=== PATIENT | female | born 1965 | race Hispanic/Latino ===

== ENCOUNTER 2019-11-30 10:46 | Day surgery (SDC) | payer BC ==
[~2019-11-30] VITALS: Ht 171.4 cm; Wt 73.8 kg
[~2019-11-30 10:46] MED LIST: LOPE2 PO
--- NOTE | 2019-11-30 11:10 | NUR ---
PATIENT ARRIVED TO DAY PATIENT ACCOMPANIED BY DAUGHTER. PATIENT AAOX3, RESPIRATIONS UNLABORED, VITAL SIGNS STABLE, DENIES ANY PAIN AT THIS TIME. PATIENT WITH PICC LINE TO RIGHT UPPER ARM.
[2019-11-30 11:25] VITALS: BP 91/72
[2019-11-30] MEDS ORDERED: DiphenhydrAMINE HCL 50 MG/ML VIAL ONE (11:37)
[2019-11-30] MEDS ORDERED: DEXAMETHASONE SOD PHOSPHATE 10MG/ML 1ML VIAL ONE (11:37)
[2019-11-30] MEDS ORDERED: SODIUM CHLORIDE 0.9% 1000ML 1,000 ML IV ONE (11:38)
[2019-11-30] MEDS ORDERED: DEXAMETHASONE SOD PHOSPHATE 10MG/ML 1ML VIAL IV SCH (11:45)
[2019-11-30] MEDS ORDERED: DiphenhydrAMINE HCL 50 MG/ML VIAL IVP SCH (11:45)
--- NOTE | 2019-11-30 12:30 | NUR ---
PATIENT RECEIVING TRANSFUSION OF SD PLATELETS VIA PICC LINE, PATIENT TOLERATING WELL. VITAL SIGNS STABLE, RESPIRATIONS UNLABORED.
--- NOTE | 2019-11-30 13:35 | NUR ---
PLATELET TRANSFUSION COMPLETED, PATIENT TOLERATED WELL. VITAL SIGNS STABLE, RESPIRATIONS UNLABORED, NO S/S OF TRANSFUSION REACTION. PICC LINE FLUSHED WITH 10CC OF NORMAL SALINE.
[2019-11-30 13:40] VITALS: BP 107/66
--- NOTE | 2019-11-30 13:45 | NUR ---
discharge instructions provided to patient and daughter, handouts provided and explained. all questions/concerns addressed.
[2020-02-16] MEDS ORDERED: TRAM50TA4 PO (23:34)
== END 2019-11-30 13:45 | disposition home or self-care (01) ==
LOC: DAH 10:46
PROVIDERS: ATTEND Internal Medicine Hematology & Oncology
DX: D69.6 Thrombocytopenia, unspecified (principal); F41.9 Anxiety disorder, unspecified; Z98.890 Other specified postprocedural states; Z79.899 Other long term (current) drug therapy; Z72.89 Other problems related to lifestyle; Z83.3 Family history of diabetes mellitus
CPT/HCPCS: 36415; 36430; 86900; 86901; A4216; J1100; J1200; J7030; P9034

== ENCOUNTER 2019-12-04 11:32 | Day surgery (SDC) | payer BC ==
[2019-12-04 12:35] VITALS: BP 113/67
--- NOTE | 2019-12-04 12:35 | NUR ---
pre procedure pt arrived ambulatory in no distress at this time. pt here for one unit of single donor platelets. pt made comfortable in bed, call light with in reach and bed in lowest position. Addendum: 12/04/19 at 1416 by JOLENE OSUNA RN RN pt has triple lumen picc line to rt upper arm with dressing dated 11/25/19 clean and dry.
[2019-12-04] MEDS ORDERED: SODIUM CHLORIDE 0.9% 1000ML 1,000 ML IV ONE (12:58)
[2019-12-04] MEDS ORDERED: DEXAMETHASONE SOD PHOSPHATE 10MG/ML 1ML VIAL ONE (12:59)
[2019-12-04] MEDS ORDERED: DiphenhydrAMINE HCL 50 MG/ML VIAL ONE (13:00)
[2019-12-04 14:46] VITALS: BP 103/66
[2019-12-30] MEDS ORDERED: RIVA20TA PO ×2 (05:31)
[2019-12-30] MEDS ORDERED: SENN8.6T32 PO ×2 (05:31)
== END 2019-12-04 15:42 | disposition home or self-care (01) ==
LOC: DAH 11:32
PROVIDERS: ATTEND Internal Medicine Hematology & Oncology
DX: D69.6 Thrombocytopenia, unspecified (principal)
CPT/HCPCS: 36415; 36430; 86900; 86901; A4216; A4222; A4223; A4606; A4663; J1100; J1200; J7030; P9034

== ENCOUNTER 2019-12-28 11:48 | Inpatient (IN) | payer BC ==
[~2019-12-28] VITALS: Ht 170.2 cm; Wt 73.0 kg
[2019-12-28 13:00] VITALS: BP 130/74
--- NOTE | 2019-12-28 13:30 | NUR ---
DIRECT ADMISSION PATIENT ARRIVED DIRECT ADMISSION FROM DR LEBLANC'S OFFICE. DX PANCYTOPENIA. LAB WORK FROM OFFICE FAXED OVER FROM [facility] OFFICE. PATIENT IS AAOX4. AMBULATORY. PICC LINE TO RIGHT UPPER ARM SALINE LOCKED. LEFT ARM RESTRICTION POST MASTECTOMY. PATIENT DENIES HAVING ANY PAIN AT THIS TIME.
[2019-12-28] MEDS ORDERED: DEXAMETHASONE 10MG/ML 1ML VIAL 20 MG in SODIUM CHLORIDE 0.9% 50 ML IV SCH (13:45)
[2019-12-28] MEDS ORDERED: DiphenhydrAMINE HCL 50 MG/ML VIAL IVP SCH (13:45)
[2019-12-28] MEDS: SODIUM CHLORIDE 0.9% 1000ML 1,000 ML IV SCH (13:45)
[2019-12-28] MEDS ORDERED: ACETAMINOPHEN 325 MG TAB PO PRN ×2 (14:00)
[2019-12-28] MEDS: TBO-FILGRASTIM 480 MCG/0.8 ML ML SQ SCH (14:00)
[2019-12-28] MEDS ORDERED: LEVOFLOXACIN 500 MG TABLET PO SCH (14:00)
[2019-12-28] MEDS ORDERED: ACETAMINOPHEN 325 MG TAB ONE (14:22)
[2019-12-28] MEDS ORDERED: VANCOMYCIN PROTOCOL PER PHARMACY IV SCH (14:45)
[2019-12-28] MEDS: ZOSYN 3.375GM+NS 50ML 50 ML IV SCH (15:25)
[2019-12-28 16:00] VITALS: BP 140/71
--- NOTE | 2019-12-28 16:36 | NUR ---
PLATELET TRANSFUSION VERIFIED 1 UNIT OF SDP WITH LEXI RN AND PATIENT AT BEDSIDE. PREMEDICATIONS OF DECADRON AND BENADRYL GIVEN PER MD ORDERS. CONSENT SIGNED AND IN CHART.
[2019-12-28] MEDS ORDERED: VANCOMYCIN 1GM+NS 250ML 250 ML IV SCH (16:45)
[2019-12-28 19:47] LABS: APPEARANCE,URINE Clear (CLEAR); BILIRUBIN,URINE Negative (NEGATIVE); COLOR,URINE Yellow (YELLOW); GLUCOSE, URINE (UA) Negative (NEGATIVE); KETONES,URINE Negative (NEGATIVE); LEUKOCYTE ESTERASE ,URINE Negative (NEGATIVE); NITRATE,URINE Negative (NEGATIVE); OCCULT BLOOD,URINE Negative (NEGATIVE); PH,URINE 7.5 (5.0-8.0); PROTEIN,URINE Negative (NEGATIVE); UROBILINOGEN,URINE 0.2 mg/dL (0.2-1.0)
[2019-12-28 20:04] VITALS: BP 98/62
[2019-12-29] VITALS (8 sets, daily range): BP systolic 95–128; BP diastolic 64–80
[2019-12-29] MEDS: ZOSYN 3.375GM+NS 50ML 50 ML IV SCH ×2 (02:49→13:39)
[2019-12-29 03:37] LABS: HEMATOCRIT 24.1 % (36-48); MEAN CORPUSCULAR HEMOGLOBIN 32.8 pg (27.0-33.0); MEAN CORPUSCULAR VOLUME 96.4 fL (79-99); PLATELET COUNT (AUTO) 42 K/uL (130-400)
[2019-12-29 03:38] LABS: WHITE BLOOD COUNT (AUTO) 0.2 K/uL (4.8-10.8)
[2019-12-29 03:40] LABS: CREATININE 0.6 mg/dL (0.5-1.5); POTASSIUM 4.3 mmol/L (3.5-5.1)
[2019-12-29 04:33] LABS: EOSINOPHILS % (MANUAL) 2 % (1-6); LYMPHOCYTES % (MANUAL) 88 % (22-44); MAN.DIFF COMMENT-IMPRESSION MANUAL DIFFERENTIAL; MONOCYTES % (MANUAL) 5 % (2-9); SEGMENTED NEUTROPHILS % 5 % (40-70)
[2019-12-29] MEDS: LEVOFLOXACIN 500 MG TABLET PO SCH (08:21)
[2019-12-29] MEDS: VANCOMYCIN 1GM+NS 250ML 250 ML IV SCH ×2 (08:21→21:57)
[2019-12-29] MEDS: TBO-FILGRASTIM 480 MCG/0.8 ML ML SQ SCH (08:22)
--- NOTE | 2019-12-29 15:00 | NUR ---
INITIAL SW spoke with patient. Patient lives with spouse, You Flores, [phone]. No home services or DME. Patient drives and is able to complete ADL's. 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 PCP is Dr. Augie Marshall. Pharmacy is [facility] located on [address]. DCP is home. Addendum: 12/29/19 at 1502 by SAJI BURR SS Amended: Links added.
--- NOTE | 2019-12-29 19:30 | NUR ---
PM Assessment Received pt awake, watching TV,with NS at 25cc/hr infusing well, routine assessment done, plan of care discuss, denies discomfort. As per report pt declined to have her PICC line dressing change which is due today as pt is scared that by using the hospital current type for PICC dressing will accidentally pull the sutures that secures the PICC. Explained to the pt the importance in maintaining the dressing to avoid possibility of infection, that I can place a non adherent dressing on top of the PICC line puncture site as to avoid it to get accidental pulling, pt agreed, PICC line re-dress aseptically as per protocol using a ChloraPrep which pt tolerated well. Puncture site noted no redness or any sign of infection with all ports patent.
[2019-12-29] MEDS: SODIUM CHLORIDE 0.9% 1000ML 1,000 ML IV SCH (22:12)
[2019-12-30] MEDS: ZOSYN 3.375GM+NS 50ML 50 ML IV SCH ×2 (02:58→15:12)
[2019-12-30 03:41] VITALS: BP 107/70
[2019-12-30 04:43] LABS: MEAN CORPUSCULAR HEMOGLOBIN 32.1 pg (27.0-33.0); MEAN CORPUSCULAR HGB CONC 33.8 g/dL (32.0-36.0); MEAN CORPUSCULAR VOLUME 94.9 fL (79-99); PLATELET COUNT (AUTO) 20 K/uL (130-400); RED BLOOD CELL COUNT(AUTO) 2.74 MIL/uL (4.00-5.50); RED CELL DISTRIBUTION WIDTH 19.1 % (11.0-15.5)
[2019-12-30 04:46] LABS: WHITE BLOOD COUNT (AUTO) 0.4 K/uL (4.8-10.8)
[2019-12-30 04:59] LABS: CREATININE 0.6 mg/dL (0.5-1.5); POTASSIUM 3.7 mmol/L (3.5-5.1)
[2019-12-30] MEDS ORDERED: RIVA20TA PO (05:31)
[2019-12-30] MEDS ORDERED: SENN8.6T32 PO (05:31)
[2019-12-30 07:30] VITALS: BP 104/68
--- NOTE | 2019-12-30 07:30 | NUR ---
ASSESSMENT ENCOUNTERED PT AMBULATING FROM BATHROOM TO BED,GAIT SLOW BUT STEADY WITH STAND BY ASSIST, PT DOES C/O RT CHEST AND FLANK PAIN 9/10 WITH DEEP BREATH, PT DOES NOT APPEAR TO BE IN ANY DISTRESS NOR ANY NEURO DEFICITS PRESENT. PT DENIES DIZZINESS, NAUSEA. DR LEBLANC UPDATED, ORDERS RECEIVED, PT IS ABLE TO TOLERATE FOOD, FLUIDS AND MEDICATION WITH NO THROAT CLEARING OR COUGH. CALL LIGHT WITHIN REACH.
[2019-12-30] MEDS: LEVOFLOXACIN 500 MG TABLET PO SCH (08:43)
[2019-12-30] MEDS: VANCOMYCIN 1GM+NS 250ML 250 ML IV SCH ×2 (08:43→22:26)
[2019-12-30] MEDS: TBO-FILGRASTIM 480 MCG/0.8 ML ML SQ SCH (08:44)
[2019-12-30] MEDS ORDERED: IBUP-2070 PO (08:46)
[2019-12-30] MEDS ORDERED: HYDROCODONE/ACETAMINOPHEN 5/325 MG TAB PO PRN (09:00)
--- NOTE | 2019-12-30 11:30 | NUR ---
NOTE ARRIVED FROM FOURTH FLOOR A TRANSFER. SHE CAME IN WITH PANCYTOPENIA. 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 SHE HAS RECEIVED 3 UNITS OF PRBC AND ONE UNIT OF PLATELETS AND SHE IS GOING TO RECEIVED ANOTHER UNIT SOON. SHE HAS ALOPECIA. SHE IS SOMEWHAT PALE. SHE HAS A PICC LINE WHIT. LEFT MASTECTOMY IN THE PAST. PINK BAND TO RIGHT WRIST. SHE HAS BEEN AFEBRILE. SHE WILL BE IN NEUTROPENIC PRECAUTIONS BECAUSE HER WBC COUNT IS 0.4 TODAY. HAS RECEIVED GRANIX. SHE HAD CXR DONE EARLIER FOR C/O RIGHT CHEST PAIN TO LATERAL ASPECT SPECIALLY WHEN SHE TAKES DEEP BREATH. REFER TO CHART FOR RESULTS. FROM MD DICTATIONS SHE HAS STAGE 4 CANCER AND THERE IS ABNORMALITIES REPORTED IN THE CXR REPORT.
[2019-12-30 12:00] VITALS: BP 113/73
[2019-12-30] MEDS: SODIUM CHLORIDE 0.9% 1000ML 1,000 ML IV SCH (13:45)
[2019-12-30] MEDS ORDERED: DEXAMETHASONE 10MG/ML 1ML VIAL 0 MG in SODIUM CHLORIDE 0.9% 50 ML IV SCH (14:00)
[2019-12-30] MEDS ORDERED: DiphenhydrAMINE HCL 50 MG/ML VIAL IV SCH (14:00)
[2019-12-30] MEDS ORDERED: DEXAMETHASONE SOD PHOSPHATE 4 MG/ML 1ML VIAL IVP SCH (15:00)
[2019-12-30] MEDS ORDERED: DEXAMETHASONE SOD PHOSPHATE 10MG/ML 1ML VIAL ONE (15:04)
[2019-12-30 16:00] VITALS: BP 104/66
[2019-12-30] MEDS ORDERED: LORATADINE 10 MG TABLET PO SCH (16:00)
--- NOTE | 2019-12-30 16:15 | NUR ---
NOTE DR BOYD CAME IN TO ASSESS PATIENT. HE WENT OVER CXR RESULTS AND IS ALSO ORDERING SOMETHING FOR POSSIBLE ADVERSE EFFECTS FROM GRANIX. REFER TO CHART FOR ORDERS.
--- NOTE | 2019-12-30 16:35 | NUR ---
NOTE PLATELET TRANSFUSION STARTED AFTER PREMEDICATED EARLIER FOR IT. I SPOKE TO DR LEBLANC SINCE THERE WAS NO ORDERS FOR PREMEDS. DECADRON AND BENADRYL GIVEN.
[2019-12-30 19:00] VITALS: BP 113/74
[2019-12-30] MEDS ORDERED: SODIUM CHLORIDE 0.9% 250 ML IV ONE (22:35)
[2019-12-30 23:00] VITALS: BP 116/73
[2019-12-31 03:00] VITALS: BP 111/66
[2019-12-31] MEDS: ZOSYN 3.375GM+NS 50ML 50 ML IV SCH ×2 (03:18→15:29)
[2019-12-31 05:21] LABS: BASOPHILS % (AUTO) 1.4 % (0.0-5.0); HEMATOCRIT 25.6 % (36-48); LYMPHOCYTES % (AUTO) 27.1 % (21.0-51.0); MEAN CORPUSCULAR HEMOGLOBIN 31.3 pg (27.0-33.0); MEAN CORPUSCULAR HGB CONC 33.6 g/dL (32.0-36.0); MEAN CORPUSCULAR VOLUME 93.1 fL (79-99); MONOCYTES % (AUTO) 14.3 % (3.0-13.0); NEUTROPHILS % (AUTO) 54.3 % (40.0-77.0); PLATELET COUNT (AUTO) 37 K/uL (130-400); RED BLOOD CELL COUNT(AUTO) 2.75 MIL/uL (4.00-5.50); RED CELL DISTRIBUTION WIDTH 17.5 % (11.0-15.5)
[2019-12-31 05:27] LABS: CREATININE 0.6 mg/dL (0.5-1.5); POTASSIUM 3.8 mmol/L (3.5-5.1)
[2019-12-31 05:28] LABS: WHITE BLOOD COUNT (AUTO) 0.7 K/uL (4.8-10.8)
[2019-12-31] MEDS ORDERED: COMPOUND IV REFRIGERATED 1 EACH IVSOLN MISC PRN (06:45)
[2019-12-31 08:00] VITALS: BP 119/73
--- NOTE | 2019-12-31 08:00 | NUR ---
NOTE AAOX3. DENIES PAIN AT THIS TIME. SHE CONTINUES IN REVERSE ISOLATION FOR LOW WBC COUNT. SHE HAS BEEN AFEBRILE. HGB LOW BUT REMAINED STABLE SINCE BLOOD TRANSFUSION. PLATELETS BETTER WELL. STATES HER PAIN TO RIGHT CHEST AREA IS BETTER. NO OTHER ISSUES REPORTED AT THIS TIME.
[2019-12-31] MEDS: VANCOMYCIN 1.25 GM in SODIUM CHLORIDE 0.9% 250 ML IV SCH ×2 (08:16→20:59)
[2019-12-31] MEDS: LEVOFLOXACIN 500 MG TABLET PO SCH (08:16)
[2019-12-31] MEDS: TBO-FILGRASTIM 480 MCG/0.8 ML ML SQ SCH (08:17)
[2019-12-31] MEDS: LORATADINE 10 MG TABLET PO SCH (08:17)
[2019-12-31 11:00] VITALS: BP 122/71
--- NOTE | 2019-12-31 11:15 | NUR ---
DR OLIVER BOYD MADE ROUNDS NOW. NO NEW ORDERS WRITTEN.
[2019-12-31] MEDS: SODIUM CHLORIDE 0.9% 1000ML 1,000 ML IV SCH (15:28)
[2019-12-31 16:00] VITALS: BP 120/67
[2019-12-31 19:54] VITALS: BP 118/71
[2019-12-31 23:27] VITALS: BP 105/73
[2020-01-01] MEDS: ZOSYN 3.375GM+NS 50ML 50 ML IV SCH (03:12)
[2020-01-01 03:51] VITALS: BP 115/75
[2020-01-01 06:27] LABS: BASOPHILS % (AUTO) 0.9 % (0.0-5.0); EOSINOPHILS % (AUTO) 1.8 % (0.0-8.0); HEMATOCRIT 27.1 % (36-48); LYMPHOCYTES % (AUTO) 15.8 % (21.0-51.0); MEAN CORPUSCULAR HEMOGLOBIN 31.5 pg (27.0-33.0); MEAN CORPUSCULAR HGB CONC 33.6 g/dL (32.0-36.0); MEAN CORPUSCULAR VOLUME 93.8 fL (79-99); MONOCYTES % (AUTO) 16.3 % (3.0-13.0); NEUTROPHILS % (AUTO) 64.3 % (40.0-77.0); PLATELET COUNT (AUTO) 30 K/uL (130-400); RED BLOOD CELL COUNT(AUTO) 2.89 MIL/uL (4.00-5.50); RED CELL DISTRIBUTION WIDTH 17.3 % (11.0-15.5); WHITE BLOOD COUNT (AUTO) 2.2 K/uL (4.8-10.8)
[2020-01-01 06:34] LABS: CREATININE 0.7 mg/dL (0.5-1.5); POTASSIUM 3.6 mmol/L (3.5-5.1)
--- NOTE | 2020-01-01 08:00 | NUR ---
am shift assessment.
[2020-01-01 08:19] VITALS: BP 112/74
[2020-01-01 08:30] LABS: BAND NEUTROPHILS % (MANUAL) 8 % (0-2); EOSINOPHILS % (MANUAL) 4 % (1-6); LYMPHOCYTES % (MANUAL) 15 % (22-44); MONOCYTES % (MANUAL) 17 % (2-9); SEGMENTED NEUTROPHILS % 56 % (40-70)
[2020-01-01 08:31] LABS: MAN.DIFF COMMENT-IMPRESSION MANUAL DIFFERENTIAL
[2020-01-01] MEDS: LEVOFLOXACIN 500 MG TABLET PO SCH (09:30)
[2020-01-01] MEDS: VANCOMYCIN 1.25 GM in SODIUM CHLORIDE 0.9% 250 ML IV SCH (09:30)
[2020-01-01] MEDS: LORATADINE 10 MG TABLET PO SCH (09:31)
[2020-01-01] MEDS: TBO-FILGRASTIM 480 MCG/0.8 ML ML SQ SCH (11:35)
[2020-01-01 11:36] VITALS: BP 129/74
--- NOTE | 2020-01-01 12:30 | NUR ---
SR. LEBLANC IN TO SEE PT. DISCHARGE ORDERS GIVEN
--- NOTE | 2020-01-01 15:30 | NUR ---
DISCHARGED USING TEACH BACK, DRESSING TO PICC LINE CHANGED AND ALL 3 PORTS FLUSHED PRIOR TO DISCHARGE. WILL FOLLOW UP WITH DR. LEBLANC ON WEDNESDAY.
[2020-02-16] MEDS ORDERED: TRAM50TA4 PO (23:34)
== END 2020-01-01 15:35 | disposition home or self-care (01) | DRG 871 ==
LOC: EDH 11:48 → OBSVTOIN 11:49 → EDHIP 11:49 → 4AH 12:49 → 3AH 12-30 11:44
PROVIDERS: ADMIT Internal Medicine Hematology & Oncology; ATTEND Internal Medicine Hematology & Oncology
PROC: 30233R1 Transfusion of Nonautologous Platelets into Peripheral Vein, Percutaneous Approach (ICD-10-PCS; principal; 2019-12-28)
PROC: 30233N1 Transfusion of Nonautologous Red Blood Cells into Peripheral Vein, Percutaneous Approach (ICD-10-PCS; 2019-12-28)
DX: A41.9 Sepsis, unspecified organism (principal); D61.810 Antineoplastic chemotherapy induced pancytopenia; C79.81 Secondary malignant neoplasm of breast; C49.9 Malignant neoplasm of connective and soft tissue, unspecified; C78.00 Secondary malignant neoplasm of unspecified lung; N39.0 Urinary tract infection, site not specified; T45.1X5A Adverse effect of antineoplastic and immunosuppressive drugs, initial encounter; K12.30 Oral mucositis (ulcerative), unspecified; Z80.3 Family history of malignant neoplasm of breast; Z87.440 Personal history of urinary (tract) infections; Z87.891 Personal history of nicotine dependence
CPT/HCPCS: 36415; 36430; 71045; 80048; 80202; 81003; 85025; 85027; 86850; 86900; 86901; 86922; 87040; 87088; 93005; G0378; J1100; J1200; J2543; J3370; J7030; J7050; P9016; P9034

== ENCOUNTER 2020-02-16 16:35 | Inpatient (IN) | payer BC ==
[~2020-02-16] VITALS: Ht 170.2 cm; Wt 69.6 kg
[~2020-02-16 16:35] MED LIST changes: +IBUP-2070 PO; +RIVA20TA PO; +SENN8.6T32 PO
[2020-02-16 17:22] LABS: BASOPHILS % (AUTO) 0.3 % (0.0-5.0); EOSINOPHILS % (AUTO) 0.1 % (0.0-8.0); HEMATOCRIT 26.2 % (36-48); LYMPHOCYTES % (AUTO) 3.2 % (21.0-51.0); MEAN CORPUSCULAR HEMOGLOBIN 33.1 pg (27.0-33.0); MEAN CORPUSCULAR HGB CONC 32.4 g/dL (32.0-36.0); MEAN CORPUSCULAR VOLUME 101.9 fL (79-99); NEUTROPHILS % (AUTO) 87.9 % (40.0-77.0); PLATELET COUNT (AUTO) 134 K/uL (130-400); RED BLOOD CELL COUNT(AUTO) 2.57 MIL/uL (4.00-5.50); RED CELL DISTRIBUTION WIDTH 19.2 % (11.0-15.5); WHITE BLOOD COUNT (AUTO) 13.6 K/uL (4.8-10.8)
[2020-02-16 17:43] LABS: CREATININE 0.6 mg/dL (0.5-1.5); POTASSIUM 3.7 mmol/L (3.5-5.1)
[2020-02-16 17:46] LABS: INR 1.01 (0.85-1.15); PARTIAL THROMBOPLASTIN TIME 33.6 SEC (26.3-35.5); PROTHROMBIN TIME 10.9 SEC (9.6-11.6)
[2020-02-16 17:47] LABS: ALBUMIN 2.8 g/dL (3.5-5.0); BILIRUBIN,TOTAL 0.6 mg/dL (0.2-1.0); TOTAL PROTEIN, SERUM 6.6 g/dL (6.0-8.3)
[2020-02-16] MEDS ORDERED: ACETAMINOPHEN 325 MG TAB PO PRN ×2 (19:45→22:45)
[2020-02-16] MEDS ORDERED: SODIUM CHLORIDE 0.9% 10 ML VIAL IVP PRN (19:45)
[2020-02-16] MEDS ORDERED: ACETAMINOPHEN 325 MG TAB ONE (21:23)
[2020-02-16 22:14] VITALS: BP 126/108
--- NOTE | 2020-02-16 22:20 | NUR ---
ADMIT PT ADMITTED TO ROOM 330, AAOX3. STILL WITH SOB WITH MOVEMENT. ADMISSION CARE DONE. ADMISSION DATA BASE COMPLETED. KEPT ON O2 AT 3LPM VIA NC. POSITIONED COMFORTABLY IN BED WITH HOB ELEVATED. ORIENTED TO ROOM AND UNIT. IN FOR MORE CARE AND MANAGEMENT. Addendum: 02/16/20 at 2311 by SAUL ARREOLA RN RN Amended: Links added.
[2020-02-16] MEDS ORDERED: DEXTROSE 50%-WATER 50 ML DISP.SYRIN IV PRN (22:45)
[2020-02-16] MEDS ORDERED: GLUCAGON 1MG KIT 1 MG ML IM PRN (22:45)
[2020-02-16] MEDS ORDERED: ZOLPIDEM TARTRATE 5 MG TAB PO PRN (22:45)
[2020-02-16] MEDS ORDERED: POTASSIUM CHLORIDE 10% ELIXIR 20 MEQ/15 ML UDCUP PO PRN (22:45)
[2020-02-16] MEDS ORDERED: LIDOCAINE HCL-MPF 1% 2ML VIAL IV PRN (22:45)
[2020-02-16] MEDS ORDERED: POTASSIUM CHLORIDE 20MEQ/100ML 100 ML IV PRN (22:45)
[2020-02-16] MEDS ORDERED: POTASSIUM CHLORIDE 20 MEQ ERTAB PO PRN (22:45)
[2020-02-16] MEDS ORDERED: ONDANSETRON HCL 4 MG/2 ML VIAL IVP PRN (22:45)
[2020-02-16] MEDS ORDERED: IPRATROPIUM/ALBUTEROL SULFATE 3 ML SOLUTION IH ONE (23:04)
--- NOTE | 2020-02-16 23:26 | NUR ---
NEBS RT, THOMAS, IN TO DO TREATMENTS AND WAS ABOUT TO PLACE BIPAP ON BUT PT ASKS TO WAIT ON IT UNTIL SHE REALLY NEEDS IT. PT IS NOT HAVING SOB AT THIS TIME. WILL MONITOR PT.
[2020-02-16 23:30] VITALS: BP 102/67
[2020-02-16] MEDS ORDERED: TRAM50TA4 PO ×2 (23:34)
--- NOTE | 2020-02-17 02:00 | NUR ---
ROUNDS PT RESTING IN BED ON HIGH SALES'S POSITION. NO SOB NOTED. KEPT COMFORTABLE. WILL MONITOR PT.
[2020-02-17 03:32] VITALS: BP 124/88
--- NOTE | 2020-02-17 05:15 | NUR ---
ROUNDS PT STILL FAIRLY ASLEEP, NO DISTRESS NOTED. KEPT UNDISTURBED FOR NOW. KEPT COMFORTABLE. FOR MORE CARE.
[2020-02-17] MEDS: IPRATROPIUM/ALBUTEROL SULFATE 3 ML SOLUTION IH SCH ×2 (06:39→11:13)
[2020-02-17] MEDS ORDERED: INSULIN HUMULIN R 100 UNIT/ML 3ML SQ SCH (07:30)
[2020-02-17 08:00] VITALS: BP 119/80
[2020-02-17] MEDS ORDERED: FAMOTIDINE 20MG TAB 20 MG TAB PO SCH (09:00)
[2020-02-17 11:00] VITALS: BP 119/71
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
--- NOTE | 2020-02-17 15:00 | NUR ---
[address] LEBLANC STATES HE IS PLANNING TO DC PATIENT HOME, S/OP THORACENTESIS STATES SHE IS FEELING MUCH BETTER, NO LABORED BREATHING, ON O2 @ 2L, PLACED PATIENT AT ROOM AIR WITH BEDSIDE PULSE OX, O2 SATS 97% WITHIN 10 MIN ON ROOM AIR, PLACED CALL TO DR ANDREWS, STATES HE IS OK WITH PATIENT DC HOME TO FOLLOW UP AT [facility] PREVIOUSLY SCHEDULED FOR CHEST TUBE IF PATIENT CAN MAINTAIN O2 SATS ABOVE 90% AT ROOM AIR. PATIENT O2 SATS 95-97% AT ROOM AIR AFTER 1 HOUR. DC INST GIVEN TO PATIENT USING TEACHBACK.
--- NOTE | 2020-02-17 15:41 | NUR ---
DCP PLAN HOME, NO EXPECTED NEED FOR HH SERVICES- CM TO FOLLOW FOR POSSIBLE NEED FOR OXYGEN. Addendum: 02/17/20 at 1542 by BREE COOPER RN CM Amended: Links added.
== END 2020-02-17 15:00 | disposition home or self-care (01) | DRG 180 ==
LOC: EDH 16:35 → EDHIP 19:00 → 3AH 21:02
PROVIDERS: ADMIT Internal Medicine Hematology & Oncology; ATTEND Internal Medicine Hematology & Oncology
PROC: 0W993ZZ Drainage of Right Pleural Cavity, Percutaneous Approach (ICD-10-PCS; principal; 2020-02-16)
DX: C76.1 Malignant neoplasm of thorax (principal); J96.01 Acute respiratory failure with hypoxia; J91.0 Malignant pleural effusion; Z80.3 Family history of malignant neoplasm of breast; Z87.440 Personal history of urinary (tract) infections
CPT/HCPCS: 36415; 71045; 71046; 80053; 82550; 82948; 83605; 84484; 85025; 85610; 85730; 93005; 94640; 94664; G0378

== ENCOUNTER 2020-04-03 13:15 | Observation (INO) | payer BC ==
[~2020-04-03] VITALS: Ht 170.2 cm; Wt 73.5 kg
[~2020-04-03 13:15] MED LIST changes: -IBUP-2070 PO; -LOPE2 PO; +TRAM50TA4 PO
[2020-04-03 15:09] LABS: BASOPHILS % (AUTO) 0.1 % (0.0-5.0); LYMPHOCYTES % (AUTO) 4.4 % (21.0-51.0); MEAN CORPUSCULAR HEMOGLOBIN 32.6 pg (27.0-33.0); MEAN CORPUSCULAR HGB CONC 30.5 g/dL (32.0-36.0); MEAN CORPUSCULAR VOLUME 107.1 fL (79-99); MONOCYTES % (AUTO) 8.5 % (3.0-13.0); NEUTROPHILS % (AUTO) 85.5 % (40.0-77.0); PLATELET COUNT (AUTO) 41 K/uL (130-400); RED BLOOD CELL COUNT(AUTO) 1.41 MIL/uL (4.00-5.50); WHITE BLOOD COUNT (AUTO) 8.6 K/uL (4.8-10.8)
[2020-04-03 15:15] LABS: HEMATOCRIT 15.1 % (36-48)
[2020-04-03 15:40] LABS: PLATELET MORPHOLOGY COMMENT MARKED DECREASE
[2020-04-03] MEDS ORDERED: FUROSEMIDE 10 MG/ML 2ML VIAL IV SCH (15:45)
[2020-04-03] MEDS ORDERED: SODIUM CHLORIDE 0.9% 100 ML IV SCH (15:45)
[2020-04-03] MEDS ORDERED: MELA10TA3 PO (17:45)
[2020-04-03] MEDS ORDERED: SENNOSIDES 8.6 MG TABLET PO PRN (17:45)
[2020-04-03] MEDS ORDERED: MORPHINE SULFATE IR 15 MG TAB 15 MG TABLET PO PRN (17:45)
[2020-04-03] MEDS ORDERED: MORP15TA70 PO (17:57)
[2020-04-03] MEDS ORDERED: OLAN2.5T29 PO (17:57)
[2020-04-03] MEDS ORDERED: MORP30TA71 PO (17:57)
[2020-04-03] MEDS: MORPHINE SULFATE IR 15 MG TAB 15 MG TABLET PO SCH (18:00)
[2020-04-03] MEDS ORDERED: MORPHINE SULFATE 15 MG TABLET.SA PO ONE (18:46)
[2020-04-03] MEDS ORDERED: FUROSEMIDE 10 MG/ML 2ML VIAL ONE (20:31)
[2020-04-03] MEDS ORDERED: **HM**(Melatonin 10 MG) PO SCH (21:00)
[2020-04-03] MEDS ORDERED: SODIUM CHLORIDE 0.9% 250 ML IV ONE (21:38)
[2020-04-03 23:30] VITALS: BP 93/67
[2020-04-04] MEDS ORDERED: TEMAZEPAM 15 MG CAPSULE PO PRN (00:15)
[2020-04-04 00:20] VITALS: BP 111/60
[2020-04-04] MEDS ORDERED: TEMAZEPAM 15 MG CAPSULE ONE (00:21)
[2020-04-04] MEDS: MORPHINE SULFATE IR 15 MG TAB 15 MG TABLET PO SCH ×3 (01:17→15:38)
[2020-04-04 04:24] VITALS: BP 105/60
--- NOTE | 2020-04-04 04:35 | NUR ---
BLOOD INITIATED THIRD UNIT OF PACK RED BLOOD CELLS UNIT #[id number]. PATIENT TOLERATING BLOOD WELL NO SIGN OF REACTION. PATIENT AAOX3 RESTING IN BED. WILL CONTINUE TO MONITOR.
[2020-04-04 08:19] VITALS: BP 122/76
[2020-04-04] MEDS: OLANZAPINE 5 MG TAB PO PRN ×2 (09:44→20:22)
--- NOTE | 2020-04-04 09:51 | NUR ---
PT C/O ANXIETY REQUESTING HER ANXIETY MED AND PAIN MEDICINE; ZYPREXA GIVEN WELL HER SCHEDULED MS CONTIN.
[2020-04-04 11:28] VITALS: BP 118/71
--- NOTE | 2020-04-04 13:22 | NUR ---
CHART CHECK COMPLETED. Pt IS A 54 Y.O. FEMALE ADMITTED SECONDARY TO ANEMIA. 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 Pt CURRENTLY ON REGULAR TEXTURE,THIN LIQUID DIET. PLEASE REQUEST FORMAL SKILLED SPEECH/SWALLOW EVALUATION IF Pt PRESENTS WITH +S/S OF ASPIRATION SUCH COUGH RESPONSE, THROAT CLEAR, OR WET VOCAL QUALITY DURING P.O. Addendum: 04/04/20 at 1324 by SO BUSCH, [facility] Amended: Links added.
--- NOTE | 2020-04-04 13:58 | NUR ---
PT IS SCHEDULED TO GO HOME AFTER RECEIVING BLOOD TODAY PER DR LEBLANC; I HAVE SPOKEN TO PT'S AND MADE AWARE, HE REQUEST EMS TRANSPORT; I HAVE SPOKEN TO MARJAN RYDER AND SHE HAS ARRANGED EMS, I ASKED ALEKSEY ABOUT PT'S CURRENT HOME HEALTH AND IF I NEEDED TO CALL REPORT TO THEM AND SHE STATED NO; PT HAS BEEN UPDATED ON ALL OF THESE ARRANGEMENTS.
--- NOTE | 2020-04-04 15:15 | NUR ---
D/C PAPERWORK COMPLETE, I HAVE CALLED EMS TO ASK FOR SENIOR PRODUCTION SUPERVISOR, THEY STATED 3 PICKUPS AHEAD OF HER; I HAVE CALLED AND UPDATED ON PROGRESS WITH D/C; PT TO KEEP THE APPOINTMENTS SHE ALREADY HAS WITH DR LEBLANC AND I HAVE ALSO LEFT PICC LINE IN PLACE THAT SHE ALREADY HAD PRIOR TO COMING INTO THE HOSPITAL; PT COMPLETED ALL 4 UNITS OF PRBC'S; I ASKED PT ABOUT THE WOUND SHE HAS ON HER BUTTOCK AND SHE STATES HER MD IS AWARE AND HAS ORDERED A CREAM FOR IT THAT SHE HAS AT HOME THAT SHE APPLIES SEVERAL TIMES A DAY.--SO I DID NOT ORDER WOUND CARE FOR TREATMENT SINCE PT ALREADY HAS TREATMENT PLAN; I WILL TAKE A PICTURE OF WOUND PRIOR TO PT LEAVING--NOTE WOUND ALREADY PRESENT PRIOR TO PT BEING ADMITTED SHE STATES SHE'S HAD FOR A COUPLE OF WEEKS AT HOME.
[2020-04-04] MEDS ORDERED: MORPHINE SULFATE 15 MG TABLET.SA PO ONE (15:32)
[2020-04-04 15:58] VITALS: BP 138/86
--- NOTE | 2020-04-04 18:20 | NUR ---
I HAVE CALLED EMS AND THEY STATED THAT PT WAS CURRENTLY 2ND IN LINE TO BE PICKED UP; I HAVE INFORMED PT; NOTE I HAVE ALSO TAKEN PHOTO OF PT'S WOUND ON BUTTOCK AND GIVEN CAMERA TO CHARGE NURSE MAGALY TO DEVELOP BECAUSE PRINTER IS ON THE COVID SIDE OF THE FLOOR THAT I AM NOT ALLOWED TO ENTER.
[2020-04-04 20:04] VITALS: BP 119/85
== END 2020-04-04 21:00 | disposition home or self-care (01) ==
LOC: EDH 13:15 → EDHIP 13:24 → 3DH 23:39
PROVIDERS: ADMIT Internal Medicine Hematology & Oncology; ATTEND Internal Medicine Hematology & Oncology
DX: C49.9 Malignant neoplasm of connective and soft tissue, unspecified (principal); C78.00 Secondary malignant neoplasm of unspecified lung; D64.9 Anemia, unspecified; D69.59 Other secondary thrombocytopenia; R53.1 Weakness
CPT/HCPCS: 36415; 36430; 85025; 86850; 86900; 86901; 86922 ×4; 99283; G0378 ×12; J1940; J7050; P9016 ×4

== ENCOUNTER 2020-04-10 18:04 | Observation (INO) | payer BC ==
[~2020-04-10 18:04] MED LIST changes: +MELA10TA3 PO; +MORP15TA70 PO; +MORP30TA71 PO; +OLAN2.5T29 PO; -RIVA20TA PO; -TRAM50TA4 PO
[2020-04-10 19:11] LABS: CREATININE 0.4 mg/dL (0.5-1.5); POTASSIUM 4.1 mmol/L (3.5-5.1)
[2020-04-10 19:14] LABS: BASOPHILS % (AUTO) 0.1 % (0.0-5.0); EOSINOPHILS % (AUTO) 0.1 % (0.0-8.0); LYMPHOCYTES % (AUTO) 3.5 % (21.0-51.0); MEAN CORPUSCULAR HEMOGLOBIN 31.1 pg (27.0-33.0); MEAN CORPUSCULAR HGB CONC 30.5 g/dL (32.0-36.0); MEAN CORPUSCULAR VOLUME 102.2 fL (79-99); MONOCYTES % (AUTO) 8.8 % (3.0-13.0); NEUTROPHILS % (AUTO) 86.6 % (40.0-77.0); PLATELET COUNT (AUTO) 31 K/uL (130-400); RED BLOOD CELL COUNT(AUTO) 1.83 MIL/uL (4.00-5.50); RED CELL DISTRIBUTION WIDTH 18.1 % (11.0-15.5); WHITE BLOOD COUNT (AUTO) 8.8 K/uL (4.8-10.8)
[2020-04-10 19:17] LABS: HEMATOCRIT 18.7 % (36-48)
[2020-04-10] MEDS ORDERED: ONDANSETRON HCL 4 MG/2 ML VIAL IVP PRN (19:45)
[2020-04-10] MEDS ORDERED: SODIUM CHLORIDE 0.9% 1000ML 1,000 ML IV SCH (19:45)
[2020-04-10] MEDS ORDERED: MORPHINE SULFATE 2 MG/ML 1ML SYG IVP PRN (19:45)
[2020-04-10] MEDS: MORPHINE SULFATE IR 15 MG TAB 15 MG TABLET PO SCH (22:00)
[2020-04-10] MEDS: OLANZAPINE 5 MG TAB PO SCH (22:00)
[2020-04-11] MEDS ORDERED: FUROSEMIDE 10 MG/ML 4ML VIAL ONE (00:40)
[2020-04-11] MEDS ORDERED: FUROSEMIDE 10 MG/ML 4ML VIAL IVP ONE (02:00)
[2020-04-11] MEDS ORDERED: MORPHINE SULFATE 2 MG/ML 1ML SYG ONE (05:11)
--- NOTE | 2020-04-11 05:25 | NUR ---
Admission note: Admitted to floor via stretcher. AOX4. Placed in bed according to pt. comfort. On continues O2 at 3LPM via NC with O2Sat at 97%. VS checked and recorded. Assessment done. ( See CPOE flow chart for full physical assessment). Has 3ports PICC line to right UA with an on-going 3rd units of PRBC - intact and patency checked. Red port noted to be occluded. No transfusion reaction noted. Plan of care initiated. Denies feeling of discomfort this time. Observed for any unusual changes in status. Needs attended and cared for. No apparent distress noted. Reported accordingly to incoming Day shift RN.
[2020-04-11 05:30] VITALS: BP 127/82
[2020-04-11] MEDS: MORPHINE SULFATE IR 15 MG TAB 15 MG TABLET PO SCH (06:00)
[2020-04-11 07:30] VITALS: BP 112/80
[2020-04-11] MEDS ORDERED: SENNOSIDES 8.6 MG TABLET PO SCH (09:00)
[2020-04-11] MEDS: OLANZAPINE 5 MG TAB PO SCH (09:15)
[2020-04-11 11:00] VITALS: BP 126/88
--- NOTE | 2020-04-11 11:21 | NUR ---
CM NOTE/DEANA PAGED PAGED, RETURNED CALL. INFORMED MD OF NEED FOR EKG, TELEMONITORING AND REPEAT H/H DUE TO ANEMIA DIAGNOSIS. PER MD, PATIENT IS TERMINAL, NO ORDERS GIVEN. TRIED CALLING PRIMARY NURSE, RHEA NINO, TO GIVE REPORT TO EXTENSION #[id number]. NO ANSWER. PRIMARY MARJAN, ALEKSEY NAVAS, AWARE.
--- NOTE | 2020-04-11 11:33 | NUR ---
RD NOTIFICATION Pt admitted with Anemia, Terminal sarcoma. Regular diet order in place. H/H 5.7/18.7. BLE 4+ Pitting. LBM 04/10. Recommend Ensure BID RD to continue to monitor. Please notify as additional nutrition concerns arise. Thank you.
--- NOTE | 2020-04-11 12:08 | NUR ---
CM Note: EMS arranged for today CM arranged and faxed EMS for today, primary nurse to call [facility] once pt ready to DC. Primary nurse aware. CM to cont to follow up.
[2020-04-11] MEDS ORDERED: MELATONIN 10MG PO SCH (21:00)
== END 2020-04-11 15:15 | disposition home or self-care (01) ==
LOC: EDH 18:04 → EDHIP 18:05 → 3DH 04-11 04:51
PROVIDERS: ADMIT Internal Medicine Hematology & Oncology; ATTEND Internal Medicine Hematology & Oncology
DX: D64.9 Anemia, unspecified (principal); R06.02 Shortness of breath; C49.9 Malignant neoplasm of connective and soft tissue, unspecified; C78.00 Secondary malignant neoplasm of unspecified lung; J45.909 Unspecified asthma, uncomplicated; Z90.12 Acquired absence of left breast and nipple; Z88.5 Allergy status to narcotic agent; Z88.8 Allergy status to other drugs, medicaments and biological substances
CPT/HCPCS: 36415; 36430; 80048; 85025; 86850; 86900; 86901; 86922; 96374; 99283; G0378 ×7; J1940; P9016 ×4